=== PATIENT | female | born 1965 | race American Indian/Alaskan Native ===

== ENCOUNTER 2017-02-04 09:56 | Day surgery (SDC) | payer OTHER ==
[2017-02-01 10:49] VITALS: BMI 21.1
[2017-02-04] MEDS ORDERED: Lidocaine 1% Inj (20ml) ONE ×2 (12:18→13:37)
[2017-02-04] MEDS ORDERED: Midazolam 2 MG/2 ML VIAL ONE (13:28)
[2017-02-04] MEDS ORDERED: Propofol 10 mg/ml Inj (20 ML) ONE (13:28)
[2017-02-04] MEDS ORDERED: Phenylephrine 10 mg/ml Inj ONE (13:31)
[2017-02-04] MEDS ORDERED: Dexamethasone 4 mg/1 ml ONE (13:31)
[2017-02-04] MEDS ORDERED: Bupivacaine 0.5% Inj(30mL) ONE (13:37)
[2017-02-04] MEDS ORDERED: Lactated Ringer's 1,000 ML IV ONE (13:40)
[2017-02-04] MEDS ORDERED: Metoprolol 1 mg/ml Inj IVP ONE (14:07)
[2017-02-04] MEDS ORDERED: Oxycodone/Acetaminophen 5/325 mg Tab PO PRN (14:47)
--- NOTE | 2017-02-04 14:49 | PCM.SURG1 ---
Surgeon's Initial Post Op Note - Surgeon's Notes Surgeon: Dr. Brito Structural Worker: Maren Wen, PGY2; Vick Messer, PGY1 Pre-Operative Diagnosis: right breast mass, right nipple discharge Operative Findings: right breast mass posterior to the areola. See full operative report Post-Operative Diagnosis: right breast mass, right nipple discharge Operation Performed: right breast lumpectomy with needle localization Specimen/Specimens Removed: right breast mass, needle cat driver Estimated Blood Loss: EBL {In ML}: 10 Blood Products Given: N/A Drains Used: No Drains Post-Op Condition: Good Date of Surgery/Procedure: 02/04/17 Time of Surgery/Procedure: 13:45
[2017-02-04] MEDS ORDERED: HYDROmorphone 0.5 mg/0.5 ml ISec IVP PRN (15:01)
[2017-02-04] MEDS ORDERED: Lactated Ringer's 1,000 ML IV SCH (15:15)
[2017-02-04 15:47] VITALS: TEMP 97.4
--- NOTE | 2017-02-04 15:52 | MAM ---
PROCEDURE: Needle localization right breast mass HISTORY: NEEDLE LOC COMPARISON: 09/21/2016 TECHNIQUE: Informed consent obtained Time-out procedure performed. Sterile technique utilized. Needle localization procedure FINDINGS: 5 cm hookwire combination was inserted into the right breast without difficulty or complication. Postprocedural mammogram confirms the presence of the mass and the 2 separate micro clips. No complications encounter during performance of the procedure. IMPRESSION: Successful needle localization confirmation of mass, area of interest within the excised specimen. Pathology results are pending.
[2017-02-04 16:09] VITALS: BP 121/74; PULSE 61; RESP 18; O2SAT 98
--- NOTE | 2017-02-05 11:26 | CP.SDSHP ---
Same Day Surgery H & P - Allergies Allergies: Allergies No Known Allergies Allergy (Verified 10/21/16 11:57) Short Stay Discharge - Short Stay Discharge Admitting Diagnosis/Reason for Visit: D36.9 Disposition: HOME/ ROUTINE Referrals: Thai Atkinson MD [Primary Care Provider] - Follow-up: Surgical clinic one week Additional Instructions (Diet, Activity): may remove dressing after 2 days prn Progress Note/Discharge Note with Instructions: Dressing dry and intact; no breast swelling
--- NOTE | 2017-02-05 18:13 | OP ---
PROCEDURE DATE: 02/04/2017 PREOPERATIVE DIAGNOSIS: Right breast mass. POSTOPERATIVE DIAGNOSIS: Right breast mass. PROCEDURE: Lumpectomy of right breast with mammographic needle localization. SURGEON: Dr. Brito. PIPE WRAPPING MACHINE OPERATOR: Dr. Wen and Dr. Messer. DESCRIPTION OF OPERATION: With the patient in the supine position, the right breast was prepped and draped in the usual sterile manner. The patient was noted to have a mammographically placed hook wire exiting from the upper portion of the right breast and examination of the mammogram films noted the end of the hookwire to be just deep to the mass which had been previously biopsied and felt to be possibly intraductal papilloma. There was also noted to be bloody nipple discharge with pressure on what appeared to be a palpable mass deep to the nipple area. A curved incision was made along the lower half of the areolar margin and the areolar skin was elevated beyond the nipple dividing the ductal system until no additional bloody material could be expressed from the nipple. The mass remained palpable within the breast tissue and the generous core of breast tissue was then excised including the mass and down to the tip of the guidewire with some surrounding grossly normal breast tissue. The operative site was examined for hemostasis. The outer portion of the hookwire was delivered into the wound and removed and the specimen and hookwire were sent for mammographic confirmation that the lesion had been excised. There was a moderate tissue defect noted deep to the areola and a segment of breast tissue was mobilized from the inframammary fold area and rotated upward to partially fill the defect and interpose between the skin and the chest wall in the area of the excision. The breast tissue was positioned with few 3-0 Vicryl sutures and closure was performed with running subcuticular suture of 4-0 Monocryl and Steri-Strips. Dry sterile dressing was applied. The patient tolerated the procedure well and transferred to recovery room in stable condition. ESTIMATED BLOOD LOSS: 10 mL. Luis Brito MD
== END 2017-02-04 16:45 | disposition home or self-care (01) ==
LOC: H.OPSURG 09:56
PROVIDERS: ATTEND Specialist
DX: N62 Hypertrophy of breast (principal); E03.9 Hypothyroidism, unspecified
CPT/HCPCS: 19281; 19301; 88307; J0690; J1100; J1885; J2001; J2250; J2370; J2405; J2704; J2765; J3010; J7030; J7120